=== PATIENT | female | born 1995 | race Asian ===

== ENCOUNTER 2019-06-12 21:37 | Emergency (ER) | payer BC, OTHER ==
[~2019-06-12] VITALS: Ht 152.4 cm; Wt 56.7 kg
[2019-06-12 21:47] VITALS: BP 132/72
--- NOTE | 2019-06-12 22:48 | NUR ---
Patient discharged to home in stable condition. Written and verbal after care instructions given. Patient verbalizes understanding of instruction.
== END 2019-06-12 22:48 | disposition home or self-care (01) ==
LOC: ER 21:44
DX: R21 Rash and other nonspecific skin eruption (principal)

== ENCOUNTER 2020-03-17 23:06 | Emergency (ER) | payer BC, OTHER ==
[~2020-03-17] VITALS: Ht 152.4 cm; Wt 56.7 kg
[2020-03-17 23:14] VITALS: BP 143/72
--- NOTE | 2020-03-17 23:21 | NUR ---
COVID TEST DONE & SENT TO LAB.
== END 2020-03-17 23:58 | disposition home or self-care (01) ==
LOC: ER 23:11
DX: Z20.828 Contact with and (suspected) exposure to other viral communicable diseases (principal)
CPT/HCPCS: 87426; 99283; C9803

== ENCOUNTER 2020-03-18 07:34 | Emergency (ER) | payer BC, OTHER ==
[~2020-03-18] VITALS: Ht 152.4 cm; Wt 56.7 kg
[2020-03-18 07:44] VITALS: BP 112/54
--- NOTE | 2020-03-18 07:50 | NUR ---
COVID SPECIMEN OBTAINED AND SENT TO LAB.
--- NOTE | 2020-03-18 07:50 | NUR ---
Patient discharged to home in stable condition. Written and verbal after care instructions given. Patient verbalizes understanding of instruction.
== END 2020-03-18 07:51 | disposition home or self-care (01) ==
LOC: ER 07:36
DX: Z20.828 Contact with and (suspected) exposure to other viral communicable diseases (principal)
CPT/HCPCS: 99283; C9803; U0003